=== PATIENT | female | born 1985 | race Caucasian/White ===

== ENCOUNTER 2024-06-27 20:41 | Emergency (ER) | payer MEDICAID ==
[~2024-06-27] VITALS: Ht 167.6 cm; Wt 107.8 kg
[~2024-06-27 20:41] MED LIST: CEPH-571 PO; HYDR-4383 PO
[2024-06-27 20:48] VITALS: BP 130/80; PULSE 84; O2SAT 98
[2024-06-27 22:00] VITALS: RESP 18
[2024-06-27] MEDS: ketorolac trometh 30MG/ML vial 30 MG/ML VIAL IM ONE (22:00)
[2024-06-27] MEDS ORDERED: LIDO700A32 TOP (22:44)
[2024-06-27] MEDS ORDERED: CYCL-1 PO (22:44)
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
[2024-06-27 22:50] VITALS: TEMP 97.8
[2024-06-27] MEDS: cyclobenzaprine 10mg tablet PO ONE (22:53)
== END 2024-06-27 22:56 | disposition home or self-care (01) ==
LOC: ER 20:42
DX: M54.2 Cervicalgia (principal); F12.90 Cannabis use, unspecified, uncomplicated; V49.9XXA Car occupant (driver) (passenger) injured in unspecified traffic accident, initial encounter; Y93.89 Activity, other specified; Y92.481 Parking lot as the place of occurrence of the external cause; Y99.8 Other external cause status
CPT/HCPCS: 96372; 99283; J1885

== ENCOUNTER 2024-09-18 11:36 | Outpatient (CLI) | payer MEDICAID ==
[~2024-09-18 11:36] MED LIST changes: +CYCL-1 PO; +LIDO-52 TOP
--- NOTE | 2024-09-18 12:43 | RADIOLOGY REPORT ---
PROCEDURE: MR MRI C SPINE INDICATION: PAIN IN NECK, L SHOULDER AND LOW SPINE EXAM DATE: 09/18/2024 11:31 AM COMPARISON: None TECHNIQUE: MRI cervical spine without intravenous contrast. FINDINGS: Straightening of the normal cervical lordosis. The vertebral body heights and marrow signal are with in normal limits. The visualized posterior fossa and craniocervical junction are intact. The intrin sic cervical cord signal appears intact. There is no prevertebral soft tissue swelling. The visuali zed paraspinal soft tissues are otherwise unremarkable. Hemangioma in the T2 vertebral body. The following axial levels are detailed below: C2-C3: Unremarkable. C3-C4: Mild posterior disc bulge narrowing the central canal to 8 mm. No significant neural foramin al stenosis. C4-C5: Unremarkable. C5-C6: Mild posterior disc bulge. No significant central canal or neural foraminal stenosis. C6-C7: Unremarkable. C7-T1: Unremarkable. IMPRESSION: 1. Mild degenerative disease. [id number] central canal stenosis C3-No significant neural landy inal stenosis. 2. Intact cervical cord signal. No evidence of cord compression. HS:Y
--- NOTE | 2024-09-18 14:12 | RADIOLOGY REPORT ---
PROCEDURE: MR MRI LUMBAR SPINE INDICATION: PAIN IN NECK, L SHOULDER AND L SPINE Exam Date: 09/18/2024 12:05 PM COMPARISON: MR MRI C SPINE on DOS: 09/18/24 TECHNIQUE: MRI lumbar spine without intravenous contrast. FINDINGS: The lumbar alignment is intact. There are degenerative endplate changes including modic endplate ch anges with anterior and lateral osteophytes throughout the lumbar spine. The visualized distal spinal cord and conus medullaris are within normal limits. The conus medullaris appears to terminate withi n normal limits. The visualized retroperitoneal and paraspinal soft tissues are unremarkable. The following axial levels are detailed below: T12-L1: Unremarkable. L1-L2: Unremarkable. L2-L3: Unremarkable. L3-L4: There is a mild circumferential disc bulge. No significant central canal or neuroforaminal s tenosis. L4-L5: There is a mild circumferential disc bulge. No significant central canal or neuroforaminal s tenosis. L5-S1: Unremarkable. IMPRESSION: 1. Mild degenerative disease L3-4 and L4-5. No significant central canal or neural foraminal stenosi s. HS:Y
--- NOTE | 2024-09-19 09:58 | RADIOLOGY REPORT ---
CLINICAL INDICATION: PAIN IN NECK, L SHOULDER AND L SPINE COMPARISON: None TECHNIQUE: Multiplanar, multisequence MRI of the left shoulder was performed without contrast. Contrast: None FINDINGS: Glenohumeral joint: There is no fracture or bone marrow edema. Alignment is maintained. No focal a rticular cartilage defect. There is no joint effusion or synovitis. Acromioclavicular joint: The acromioclavicular joint is normal in appearance. The acromion is not downsloping. Rotator cuff and bursae: The supraspinatus, infraspinatus, subscapularis and teres minor tendons are intact. There is no regional muscle atrophy. No fluid distention of the subacromial subdeltoid b ursa. Biceps tendon and glenoid labrum: The long head biceps tendon is located within the bicipital groove and intact. The labrum is unremarkable. IMPRESSION: 1. Normal MRI of the left shoulder without intravenous contrast.
== END 2024-09-18 23:59 | disposition home or self-care (01) ==
LOC: MRI02 11:36
PROVIDERS: ATTEND Anesthesiology
DX: S46.012A Strain of muscle(s) and tendon(s) of the rotator cuff of left shoulder, initial encounter (principal); M51.16 Intervertebral disc disorders with radiculopathy, lumbar region; M50.123 Cervical disc disorder at C6-C7 level with radiculopathy; M25.512 Pain in left shoulder; S39.012A Strain of muscle, fascia and tendon of lower back, initial encounter; X58.XXXA Exposure to other specified factors, initial encounter; Y93.89 Activity, other specified; Y92.89 Other specified places as the place of occurrence of the external cause; Y99.8 Other external cause status
CPT/HCPCS: 72141; 72148; 73221